=== PATIENT | male | born 1970 | race Caucasian/White ===

== ENCOUNTER 2024-01-14 06:12 | Day surgery (SDC) | payer BC ==
[2024-01-14 06:44] VITALS: RESP 18; TEMP 96.4
[2024-01-14] MEDS ORDERED: Lactated Ringers 1,000 ML IV ONE (06:54)
[2024-01-14] MEDS: Lactated Ringers 1,000 ML IV SCH (06:58)
[2024-01-14] MEDS ORDERED: Xylocaine-Mpf 2% 5 Ml Vial ONE (09:08)
[2024-01-14] MEDS ORDERED: DIPRIVAN 200 MG/20 ML IV ONE ×2 (09:08→09:24)
[2024-01-14] MEDS ORDERED: Versed 2 MG/2 ML Injection ONE (09:09)
[2024-01-14] MEDS ORDERED: SUBLIMAZE 100 MCG/2 ML ONE (09:10)
--- NOTE | 2024-01-14 10:04 | OP ---
SURGERY DATE/TIME: 01/14/2024 0908 PREOPERATIVE DIAGNOSIS: Screening exam with sister having had colon cancer. POSTOPERATIVE DIAGNOSIS: Normal colon. PROCEDURE: Colonoscopy. SURGEON: Dr. Olivas. ANESTHESIA: Medications given by anesthesia department. HISTORY: The patient is a 53-year-old white male patient presenting now for screening colonoscopy. The patient was appraised of the risks of the procedure including the risk of perforation, phlebitis, untoward reaction to medication, bleeding and missed lesions. The patient verbalized his understanding and desired to have the procedure performed. DESCRIPTION OF PROCEDURE: The patient was given the medications by the anesthesia department. He had continuous pulse oximetry, ECG monitoring and intermittent blood pressure monitoring during the examination. He was placed in the left lateral decubitus position. Digital rectal examination was performed and revealed normal anal sphincter tone and no masses. The flexible Olympus pediatric colonoscope was used to intubate the rectum. A view of the colon was developed sequentially to the cecum. Upon insertion and withdrawal, including a retroflex view in the rectum, no mucosal lesions were encountered. The scope was removed from the patient who tolerated the procedure well and was sent back to OP recovery in good condition. The prep was noted to be fair.
[2024-01-14 10:20] VITALS: BP 111/65; PULSE 58; O2SAT 98
== END 2024-01-14 10:23 | disposition home or self-care (01) ==
LOC: SDC 06:12
PROVIDERS: ATTEND Family Medicine
DX: Z12.11 Encounter for screening for malignant neoplasm of colon (principal); Z80.0 Family history of malignant neoplasm of digestive organs
CPT/HCPCS: J2250; J2704; J3010

== ENCOUNTER 2024-10-06 06:56 | Day surgery (SDC) | payer OTHER ==
[2024-10-06] MEDS: CEFAZOLIN 2 GM/100 ML NaCl 2 GM/100 ML IVPB IV SCH (07:01)
[2024-10-06] MEDS: NEURONTIN PO ONE (07:01)
[2024-10-06] MEDS: Lactated Ringers 1,000 ML IV SCH (07:01)
[2024-10-06] MEDS: TYLENOL EXTRA STRENGTH 500 MG PO ONE (07:02)
[2024-10-06] MEDS: celeBREX 100 MG PO ONE (07:02)
[2024-10-06] MEDS: Decadron 4 MG PO ONE (07:02)
[2024-10-06] MEDS ORDERED: Marcaine Mpf 0.5% Vial 30 Ml ONE (08:13)
[2024-10-06] MEDS ORDERED: EXPAREL 133 MG/10 ML VIAL IJ ONE (08:13)
[2024-10-06] MEDS ORDERED: Versed 2 MG/2 ML Injection ONE (08:18)
[2024-10-06] MEDS ORDERED: DEXMEDETOMIDINE 80 MCG/20ML-NS IV ONE (08:18)
[2024-10-06] MEDS ORDERED: SUBLIMAZE 100 MCG/2 ML ONE ×2 (08:18→11:08)
[2024-10-06] MEDS ORDERED: Xylocaine-Mpf 2% 5 Ml Vial ONE (08:19)
[2024-10-06] MEDS ORDERED: Lactated Ringers 1,000 ML IV ONE ×2 (08:49→09:40)
[2024-10-06] MEDS ORDERED: propofoL IV ONE (09:18)
[2024-10-06] MEDS ORDERED: Zofran 4 MG/2 ML VIAL ONE (09:19)
[2024-10-06] MEDS ORDERED: Epinephrine Preservative Free 1 MG/ML ONE (10:24)
[2024-10-06 11:47] VITALS: BP 115/79; RESP 16
[2024-10-06 12:04] VITALS: PULSE 75; TEMP 96.9; O2SAT 95
--- NOTE | 2024-10-09 12:41 | OP ---
SURGERY DATE/TIME: 10/06/2024 [id number] PREOPERATIVE DIAGNOSES: Partial-thickness tear, right rotator cuff with impingement syndrome; acromioclavicular osteoarthritis; degenerative tearing of the glenoid labrum. POSTOPERATIVE DIAGNOSES: Partial-thickness tear, right rotator cuff with impingement syndrome; acromioclavicular osteoarthritis; degenerative tearing of the glenoid labrum. PROCEDURE: Arthroscopy of the right shoulder with debridement of rotator cuff, subacromial decompression, Teri procedure, and debridement of glenoid labrum. SURGEON: Enrique Pearson II, DO. ANESTHESIA: General, with a block for postop pain control. DESCRIPTION OF PROCEDURE AND FINDINGS: The patient was identified, and informed consent was obtained. The patient was taken to the operative suite and placed in supine position on the operating table where the general anesthetic was administered. Once an appropriate level of anesthesia had been obtained, the patient was then placed into the left lateral decubitus position with the right side up on the hunt bag. Axillary roll placed. Bony prominences padded. Shoulders were rotated back 20 degrees and the hunt bag was then inflated. The right upper extremity was then prepped and draped in the usual sterile fashion. A standard time-out was taken. The arm was then placed into the STaR abduction traction device with about 10 pounds of longitudinal traction, 20 degrees of forward flexion, and 40 degrees of lateral opening. At this point then, the shoulder was marked for bony landmarks and a standard posterior portal was created with an 11 blade. Trocar and cannula were placed in the glenohumeral joint, which was then distended with the arthroscopic pump. An 18-gauge spinal needle identified the level for the anterior portal, and this was also created with an 11 blade. The glenohumeral joint was now inspected in a systematic fashion. The humeral head and glenoid fossa were noted to be intact. There was noted to be degenerative tearing of the anterior and superior labrum. The posterior labrum was intact. The inferior glenoid pouch was noted to be intact with no evidence of loose bodies or synovial hypertrophy. The glenohumeral ligaments were inspected and noted to be intact. Biceps tendon was noted to be intact, as was the subscapularis. There was some very minimal scuffing noted on the supraspinatus. The infraspinatus and teres were noted to be intact. The labrum was then debrided with the shaver and contoured with the SERFAS wand. Rotator cuff was debrided with the SERFAS wand as there was only minimal scuffing. At this point then, the instrumentation was placed into the bursal space where bursoscopy was performed. The patient's rotator cuff was visualized from the bursal surface and noted to have very minimal scuffing in 1 small area. Otherwise, the cuff was noted to be intact and pristine. The undersurface of the acromion was then denuded of soft tissue, and about 2 to 2.5 bur thicknesses of acromion were removed anteriorly with the bur, tapering this to a smooth transition posteriorly. About 2.5 to 3 bur thicknesses of the distal clavicle were resected, giving us a nice Teri procedure. The undersurface of the clavicle was also debrided such that there was no further trumpeting. At this point, the shoulder was reinspected and copiously irrigated and no further pathology identified. The instrumentation was removed, and the portal sites were closed with interrupted 4-0 nylon suture. Adaptics, 4 x 4's, and a standard postop arthroscopy dressing applied. The patient was placed into a sling for comfort, transferred to the cart, and taken to the recovery room in satisfactory condition, having tolerated the procedure well.
== END 2024-10-06 12:15 | disposition home or self-care (01) ==
LOC: SDC 06:56
PROVIDERS: ATTEND Orthopaedic Surgery
DX: M75.41 Impingement syndrome of right shoulder (principal); M25.511 Pain in right shoulder; M19.011 Primary osteoarthritis, right shoulder; M75.101 Unspecified rotator cuff tear or rupture of right shoulder, not specified as traumatic
CPT/HCPCS: 29823; 29824; 29826; 76937; J0171; J0666; J0690; J2250; J2405; J2704; J3010; A9270-GY